=== PATIENT | female | born 1935 | race Caucasian/White ===

== ENCOUNTER 2017-02-02 06:13 | Emergency (ER) | payer BC ==
[~2017-02-02] VITALS: Ht 165.1 cm; Wt 65.0 kg
[2017-02-02 06:16] VITALS: BP 181/79; PULSE 69; RESP 16; TEMP 98; O2SAT 98
[2017-02-02] MEDS ORDERED: SODIUM CHLORIDE 0.9% FLUSH 5 ML FLUSH IVF PRN (06:30)
[2017-02-02 06:35] VITALS: RESP 18; O2SAT 99
--- NOTE | 2017-02-02 06:41 | PD ---
HPI Chief Complaint: Medical Clearance Time Seen by Provider: 06:25 Travel History International Travel<30 days: No Contact w/Intl Traveler<30days: No Traveled to known affect area: No History of Present Illness HPI Is a 81-year-old female presents emergency Department with generalized anxiety and some mild depression associated with her husbands decline in health. Patient is visiting from [facility] where her primary care physician is. Apparently her has been fairly sick with GI bleeding and in and out of the hospital. He is now on estrogen is as a last ditch effort to control the bleeding. She has been losing a few pounds over the past few weeks with her anxiety. Her family wanted her to come to the doctor to be checked out to make sure nothing was significant wrong with her. Patient complains of some generalized fatigue as well but denies any abdominal pain nausea vomiting chest pain shortness of breath rash palpitations or other physical complaint. PFSH Past Medical History Narrative Medical Hyperlipidemia, Atrial fibrillation. Past Surgical History Narrative Surgical Denies Family History Narrative Family History noncontributory Social History Tobacco Use: No Allergies-Medications (Allergen,Severity, Reaction): Coded Allergies: No Known Allergies (Unverified , 02/02/17) Reported Meds & Prescriptions Reported Meds & Active Scripts Active Reported Pradaxa (Dabigatran) 150 Mg Cap 150 Mg PO BID Potassium Chloride ER (Potassium Chloride) 20 Meq Tab 20 Meq PO BID Oxybutynin ER 24 HR (Oxybutynin Chloride) 10 Mg Tab 10 Mg PO DAILY Simvastatin 20 Mg Tab 20 Mg PO DAILY Lexapro (Escitalopram Oxalate) 10 Mg Tab 10 Mg PO DAILY Lisinopril 40 Mg Tab 40 Mg PO DAILY Hydrochlorothiazide 12.5 Mg Cap 12.5 Mg PO DAILY Norvasc (Amlodipine Besylate) 2.5 Mg Tab 2.5 Mg PO DAILY Atenolol 25 Mg Tab 12.5 Mg PO DAILY Review of Systems Except as stated in HPI: all other systems reviewed are Neg Physical Exam Narrative GENERAL: Well-developed well-nourished quite pleasant 81-year-old female who appears generally stated age. She appears in no apparent distress. SKIN: Warm and dry. HEAD: Atraumatic. Normocephalic. EYES: Pupils equal and round. No scleral icterus. No injection or drainage. ENT: No nasal bleeding or discharge. Mucous membranes pink and moist. NECK: Trachea midline. No JVD. CARDIOVASCULAR: Regular rate and rhythm. No murmur appreciated. RESPIRATORY: No accessory muscle use. Clear to auscultation. Breath sounds equal bilaterally. GASTROINTESTINAL: Abdomen soft, non-tender, nondistended. Hepatic and splenic margins not palpable. MUSCULOSKELETAL: No obvious deformities. No clubbing. No cyanosis. No edema. NEUROLOGICAL: Awake and alert. No obvious cranial nerve deficits. Motor grossly within normal limits. Normal speech. PSYCHIATRIC: Appropriate mood and affect; insight and judgment normal. Data Data Last Documented VS Vital Signs Date Time Temp Pulse Resp B/P Pulse Ox O2 Delivery O2 Flow Rate FiO2 02/02/17 06:35 62 18 02/02/17 06:35 99 Nasal Cannula 2 02/02/17 06:16 98.0 181/79 Orders Electrocardiogram (02/02/17 06:30) Basic Metabolic Panel (Bmp) (02/02/17 06:30) Ckmb (Isoenzyme) Profile (02/02/17 06:30) Complete Blood Count With Diff (02/02/17 06:30) Magnesium (Mg) (02/02/17 06:30) Prothrombin Time / Inr (Pt) (02/02/17 06:30) Act Partial Throm Time (Ptt) (02/02/17 06:30) Troponin I (02/02/17 06:30) Lipase (02/02/17 06:30) Chest, Single Ap (02/02/17 06:30) Ecg Monitoring (02/02/17 06:30) Bilateral Bp Monitoring (02/02/17 06:30) Iv Access Insert/Monitor (02/02/17 06:30) Oximetry (02/02/17 06:30) Oxygen Administration (02/02/17 06:30) Sodium Chloride 0.9% Flush (Ns Flush) (02/02/17 06:30) Urinalysis - C+S If Indicated (02/02/17 06:36) CKMB (02/02/17 06:35) CKMB% (02/02/17 06:35) Potassium Cl 40 Meq/30 Ml Liq (Kcl 40 Me (02/02/17 09:15) Labs Laboratory Tests Test 02/02/17 02/02/17 06:35 07:10 White Blood Count 4.2 TH/MM3 Red Blood Count 3.62 MIL/MM3 Hemoglobin 11.6 GM/DL Hematocrit 33.9 % Mean Corpuscular Volume 93.6 FL Mean Corpuscular Hemoglobin 32.0 PG Mean Corpuscular Hemoglobin 34.2 % Concent Red Cell Distribution Width 13.6 % Platelet Count 81 TH/MM3 Mean Platelet Volume 11.6 FL Neutrophils (%) (Auto) 66.8 % Lymphocytes (%) (Auto) 21.8 % Monocytes (%) (Auto) 9.7 % Eosinophils (%) (Auto) 1.3 % Basophils (%) (Auto) 0.4 % Neutrophils # (Auto) 2.8 TH/MM3 Lymphocytes # (Auto) 0.9 TH/MM3 Monocytes # (Auto) 0.4 TH/MM3 Eosinophils # (Auto) 0.1 TH/MM3 Basophils # (Auto) 0.0 TH/MM3 CBC Comment AUTO DIFF Differential Comment AUTO DIFF CONFIRMED Platelet Estimate LOW Platelet Morphology Comment ENLARGED Ovalocytes 1+ Prothrombin Time 11.7 SEC Prothromb Time International 1.1 RATIO Ratio Activated Partial 28.9 SEC Thromboplast Time Sodium Level 143 MEQ/L Potassium Level 3.3 MEQ/L Chloride Level 104 MEQ/L Carbon Dioxide Level 31.3 MEQ/L Anion Gap 8 MEQ/L Blood Urea Nitrogen 13 MG/DL Creatinine 0.92 MG/DL Estimat Glomerular Filtration 59 ML/MIN Rate Random Glucose 96 MG/DL Calcium Level 8.9 MG/DL Magnesium Level 2.1 MG/DL Total Creatine Kinase 116 U/L Creatine Kinase MB 0.6 NG/ML Troponin I LESS THAN 0.02 NG/ML Lipase 181 U/L Urine Color LIGHT-YELLOW Urine Turbidity CLEAR Urine pH 7.5 Urine Specific [place] 1.005 Urine Protein NEG mg/dL Urine Glucose (UA) NEG mg/dL Urine Ketones NEG mg/dL Urine Occult Blood NEG Urine Nitrite NEG Urine Bilirubin NEG Urine Urobilinogen LESS THAN 2.0 MG/DL Urine Leukocyte Esterase NEG Urine RBC LESS THAN 1 /hpf Urine WBC 1 /hpf Microscopic Urinalysis Comment CULT NOT INDICATED MDM Medical Decision Making Medical Screen Exam Complete: Yes Emergency Medical Condition: Yes Interpretation(s) EKG shows atrial fibrillation with normal axis and normal R-wave progression. No concerning ST T changes intervals otherwise within normal limits. This is an abnormal EKG. Differential Diagnosis Generalized weakness, urinary tract infection, anxiety, adjustment disorder, depressed mood, anemia Narrative Course Is a 81-year-old female who appears well and in no apparent distress. Family and friends been concerned over her that she is not taking care of herself in light of her ailing . She is quite pleasant and has no physical exam findings to suggest significant illness. No lymphadenopathy no abdominal pain no chest pain. Given her age and family's concerns I have added basic labs including CMP and CBC UA chest x-ray and troponin. Patient to be discussed with Dr. Murphy at shift change to follow-up labs and disposition properly. Diagnosis Primary Impression: Fatigue Qualified Code: R53.83 - Fatigue, unspecified type Additional Impression: Adjustment disorder Judah Nicole MD Feb 02, 2017 06:41
[2017-02-02] MEDS ORDERED: PRAD150C PO (06:47)
[2017-02-02] MEDS ORDERED: SIMV20TA PO (06:47)
[2017-02-02] MEDS ORDERED: LEXA10TA PO (06:47)
[2017-02-02] MEDS ORDERED: POTA-163 PO (06:47)
[2017-02-02] MEDS ORDERED: HYDR12.57 PO (06:47)
[2017-02-02] MEDS ORDERED: LISI40TA PO (06:47)
[2017-02-02] MEDS ORDERED: OXYB10TA PO (06:47)
[2017-02-02] MEDS ORDERED: NORV2.5T PO (06:47)
[2017-02-02] MEDS ORDERED: ATEN25TA PO (06:47)
--- NOTE | 2017-02-02 06:53 | RADRPT ---
EXAM DATE/TIME: 02/02/2017 06:42 [facility] COMPARISON: No previous studies available for comparison. INDICATIONS : Shortness of breath. MEDICAL HISTORY : None. SURGICAL HISTORY : None. ENCOUNTER: Initial ACUITY: 1 day PAIN SCORE: 0/10 LOCATION: Bilateral chest FINDINGS: A single view of the chest demonstrates the lungs to be symmetrically aerated without confluent infil trate. There is some blunting of the right costophrenic angle possibly representing a small effusion. [place] density laterally in the right upper lung field is quite dense, projects over the third anter ior rib and scapula and appears to be associated with a regional bony structure. Heart size is promin ent but well compensated. Osseous structures are intact. CONCLUSION: Compensated cardiomegaly. Possible small right-sided effusion with some blunting of the costophrenic angle. [place] bony density laterally in the right upper lung field is probably associated with the anterior third rib or the scapula. No acute infiltrate. Gregory Sparrow MD on February 02, 2017 at 6:48 Board Certified Radiologist. This report was verified electronically.
[2017-02-02 06:56] LABS: AUTOMATED NEUTROPHIL # 2.8 TH/MM3 (1.8-7.7); BASOPHIL % 0.4 % (0.0-2.0); EOSINOPHIL # 0.1 TH/MM3 (0-0.4); EOSINOPHIL % 1.3 % (0.0-4.0); HEMATOCRIT 33.9 % (35.0-46.0); LYMPH % 21.8 % (9.0-44.0); LYMPHOCYTE # 0.9 TH/MM3 (1.0-4.8); MEAN CELL VOLUME 93.6 FL (80.0-100.0); MEAN CORPUSCULAR HGB CONC 34.2 % (32.0-36.0); MONO % 9.7 % (0.0-8.0); NEUT % 66.8 % (16.0-70.0); PLATELET COUNT 81 TH/MM3 (150-450); RED BLOOD COUNT 3.62 MIL/MM3 (4.00-5.30); RED CELL DISTRIBUTION WIDTH 13.6 % (11.6-17.2); WHITE BLOOD COUNT 4.2 TH/MM3 (4.0-11.0)
[2017-02-02 07:06] LABS: APTT (PATIENT) 28.9 SEC (24.3-30.1); HEMO FLAGS AUTO DIFF; INTERNATIONAL NORMALIZED RATIO 1.1 RATIO; PROTHROMBIN TIME - PATIENT 11.7 SEC (9.8-11.6)
[2017-02-02 07:16] LABS: ANION GAP 8 MEQ/L (5-15); BICARBONATE 31.3 MEQ/L (21.0-32.0); BLOOD UREA NITROGEN 13 MG/DL (7-18); CHLORIDE 104 MEQ/L (98-107); GLOMERULAR FILTRATION RATE 59 ML/MIN (>89); MAGNESIUM 2.1 MG/DL (1.5-2.5); POTASSIUM 3.3 MEQ/L (3.5-5.1); SODIUM (NA) 143 MEQ/L (136-145)
[2017-02-02 07:20] LABS: CREATINE KINASE 116 U/L (26-192)
[2017-02-02 07:33] LABS: CKMB 0.6 NG/ML (0.5-3.6)
[2017-02-02 07:38] LABS: OVALOCYTES 1+ (NORMAL); PLATELET ESTIMATE SMEAR LOW (NORMAL); PLATELET MORPHOLOGY ENLARGED (NORMAL)
[2017-02-02 07:39] LABS: SCAN/DIFF AUTO DIFF CONFIRMED
--- NOTE | 2017-02-02 07:44 | PD ---
Physical Exam Date Seen by Provider: Feb 02, 2017 Data Data Last Documented VS Vital Signs Date Time Temp Pulse Resp B/P Pulse Ox O2 Delivery O2 Flow Rate FiO2 02/02/17 06:35 62 18 02/02/17 06:35 99 Nasal Cannula 2 02/02/17 06:16 98.0 181/79 Orders Electrocardiogram (02/02/17 06:30) Basic Metabolic Panel (Bmp) (02/02/17 06:30) Ckmb (Isoenzyme) Profile (02/02/17 06:30) Complete Blood Count With Diff (02/02/17 06:30) Magnesium (Mg) (02/02/17 06:30) Prothrombin Time / Inr (Pt) (02/02/17 06:30) Act Partial Throm Time (Ptt) (02/02/17 06:30) Troponin I (02/02/17 06:30) Lipase (02/02/17 06:30) Chest, Single Ap (02/02/17 06:30) Ecg Monitoring (02/02/17 06:30) Bilateral Bp Monitoring (02/02/17 06:30) Iv Access Insert/Monitor (02/02/17 06:30) Oximetry (02/02/17 06:30) Oxygen Administration (02/02/17 06:30) Sodium Chloride 0.9% Flush (Ns Flush) (02/02/17 06:30) Urinalysis - C+S If Indicated (02/02/17 06:36) CKMB (02/02/17 06:35) CKMB% (02/02/17 06:35) Potassium Cl 40 Meq/30 Ml Liq (Kcl 40 Me (02/02/17 09:15) Labs Laboratory Tests Test 02/02/17 02/02/17 06:35 07:10 White Blood Count 4.2 TH/MM3 Red Blood Count 3.62 MIL/MM3 Hemoglobin 11.6 GM/DL Hematocrit 33.9 % Mean Corpuscular Volume 93.6 FL Mean Corpuscular Hemoglobin 32.0 PG Mean Corpuscular Hemoglobin 34.2 % Concent Red Cell Distribution Width 13.6 % Platelet Count 81 TH/MM3 Mean Platelet Volume 11.6 FL Neutrophils (%) (Auto) 66.8 % Lymphocytes (%) (Auto) 21.8 % Monocytes (%) (Auto) 9.7 % Eosinophils (%) (Auto) 1.3 % Basophils (%) (Auto) 0.4 % Neutrophils # (Auto) 2.8 TH/MM3 Lymphocytes # (Auto) 0.9 TH/MM3 Monocytes # (Auto) 0.4 TH/MM3 Eosinophils # (Auto) 0.1 TH/MM3 Basophils # (Auto) 0.0 TH/MM3 CBC Comment AUTO DIFF Differential Comment AUTO DIFF CONFIRMED Platelet Estimate LOW Platelet Morphology Comment ENLARGED Ovalocytes 1+ Prothrombin Time 11.7 SEC Prothromb Time International 1.1 RATIO Ratio Activated Partial 28.9 SEC Thromboplast Time Sodium Level 143 MEQ/L Potassium Level 3.3 MEQ/L Chloride Level 104 MEQ/L Carbon Dioxide Level 31.3 MEQ/L Anion Gap 8 MEQ/L Blood Urea Nitrogen 13 MG/DL Creatinine 0.92 MG/DL Estimat Glomerular Filtration 59 ML/MIN Rate Random Glucose 96 MG/DL Calcium Level 8.9 MG/DL Magnesium Level 2.1 MG/DL Total Creatine Kinase 116 U/L Creatine Kinase MB 0.6 NG/ML Troponin I LESS THAN 0.02 NG/ML Lipase 181 U/L Urine Color LIGHT-YELLOW Urine Turbidity CLEAR Urine pH 7.5 Urine Specific [place] 1.005 Urine Protein NEG mg/dL Urine Glucose (UA) NEG mg/dL Urine Ketones NEG mg/dL Urine Occult Blood NEG Urine Nitrite NEG Urine Bilirubin NEG Urine Urobilinogen LESS THAN 2.0 MG/DL Urine Leukocyte Esterase NEG Urine RBC LESS THAN 1 /hpf Urine WBC 1 /hpf Microscopic Urinalysis Comment CULT NOT INDICATED MDM Medical Record Reviewed: Yes Supervised Visit with BRIELLE: No Interpretation(s) EKG at 0633: A. fib at 67 bpm, QT/QTc 428/443, no acute ST or T-wave changes Vital Signs Date Time Temp Pulse Resp B/P Pulse Ox O2 Delivery O2 Flow Rate FiO2 02/02/17 06:35 62 18 02/02/17 06:35 99 Nasal Cannula 2 02/02/17 06:35 18 99 Nasal Cannula 2 02/02/17 06:16 98.0 69 16 181/79 98 Laboratory Tests Test 02/02/17 06:35 White Blood Count 4.2 TH/MM3 (4.0-11.0) Red Blood Count 3.62 MIL/MM3 (4.00-5.30) Hemoglobin 11.6 GM/DL (11.6-15.3) Hematocrit 33.9 % (35.0-46.0) Mean Corpuscular Volume 93.6 FL (80.0-100.0) Mean Corpuscular Hemoglobin 32.0 PG (27.0-34.0) Mean Corpuscular Hemoglobin 34.2 % Concent (32.0-36.0) Red Cell Distribution Width 13.6 % (11.6-17.2) Platelet Count 81 TH/MM3 (150-450) Mean Platelet Volume 11.6 FL (7.0-11.0) Neutrophils (%) (Auto) 66.8 % (16.0-70.0) Lymphocytes (%) (Auto) 21.8 % (9.0-44.0) Monocytes (%) (Auto) 9.7 % (0.0-8.0) Eosinophils (%) (Auto) 1.3 % (0.0-4.0) Basophils (%) (Auto) 0.4 % (0.0-2.0) Neutrophils # (Auto) 2.8 TH/MM3 (1.8-7.7) Lymphocytes # (Auto) 0.9 TH/MM3 (1.0-4.8) Monocytes # (Auto) 0.4 TH/MM3 (0-0.9) Eosinophils # (Auto) 0.1 TH/MM3 (0-0.4) Basophils # (Auto) 0.0 TH/MM3 (0-0.2) CBC Comment AUTO DIFF Differential Comment AUTO DIFF CONFIRMED Platelet Estimate LOW (NORMAL) Platelet Morphology Comment ENLARGED (NORMAL) Ovalocytes 1+ (NORMAL) Prothrombin Time 11.7 SEC (9.8-11.6) Prothromb Time International 1.1 RATIO Ratio Activated Partial 28.9 SEC Thromboplast Time (24.3-30.1) Sodium Level 143 MEQ/L (136-145) Potassium Level 3.3 MEQ/L (3.5-5.1) Chloride Level 104 MEQ/L (98-107) Carbon Dioxide Level 31.3 MEQ/L (21.0-32.0) Anion Gap 8 MEQ/L (5-15) Blood Urea Nitrogen 13 MG/DL (7-18) Creatinine 0.92 MG/DL (0.50-1.00) Estimat Glomerular Filtration 59 ML/MIN (>89) Rate Random Glucose 96 MG/DL (74-106) Calcium Level 8.9 MG/DL (8.5-10.1) Magnesium Level 2.1 MG/DL (1.5-2.5) Total Creatine Kinase 116 U/L (26-192) Creatine Kinase MB 0.6 NG/ML (0.5-3.6) Troponin I LESS THAN 0.02 NG/ML (0.02-0.05) Lipase 181 U/L (73-393) Last Impressions Chest X-Ray 02/02/17629 Signed Impressions: Service Date/Time: Thursday, February 02, 2017 06:42 - CONCLUSION: Compensated cardiomegaly. Possible small right-sided effusion with some blunting of the costophrenic angle. [place] bony density laterally in the right upper lung field is probably associated with the anterior third rib or the scapula. No acute infiltrate. Gregory Saprrow MD Differential Diagnosis UTI, depression, ACS, electrolyte abnormality, anxiety reaction, arrhythmia, adjustment disorder, depression Narrative Course Please see previous providers chart Patient was signed out to me at change of shift, patient pending labs and dispo Patient is a 81-year-old female with history of afib, who presents to emergency room for evaluation of generalized anxiety secondary to medical problems with her . Patient with no overt complaints at this time, patient requesting a general workup as she reports generalized fatigue. Patient with no headache or dizziness, no chest pain or shortness of breath at this time. She reports abdominal pain, nausea or vomiting or fevers or chills. Labs as well as UA and x-ray chest ordered for general evaluation of patient. Patient with no complaints at this time. Labs as well as UA and x-ray of chest reviewed. Copy of xray report was given to patient at discharge Last Impressions Chest X-Ray 02/02/17629 Signed Impressions: Service Date/Time: Thursday, February 02, 2017 06:42 - CONCLUSION: Compensated cardiomegaly. Possible small right-sided effusion with some blunting of the costophrenic angle. [place] bony density laterally in the right upper lung field is probably associated with the anterior third rib or the scapula. No acute infiltrate. Gregory Sparrow MD CBC & BMP Diagram 02/02/17 06:35 Patient with no complaints at this time, I reviewed all labs and all studies with patient in detail. Patient reports that she is "fine" and is only here for general evaluation as her family was worried about her. Patient will follow up with pcp and return to ER as needed. Diagnosis Primary Impression: Fatigue Qualified Code: R53.83 - Fatigue, unspecified type Additional Impressions: Adjustment disorder Hypokalemia Thrombocytopenia Patient Instructions: General Instructions Additional Instruction: Please provide patient with a copy of her lab work at discharge Please follow-up in a primary care doctor Return to the emergency room as needed Disposition: 01 DISCHARGE HOME Condition: Stable Roxie Murphy DO Feb 02, 2017 07:44
[2017-02-02 07:45] LABS: BLOOD, URINE NEG (NEG); GLUCOSE,URINE NEG (NEG); KETONE, URINE NEG (NEG); NITRITE,URINE NEG (NEG); PH, URINE 7.5 (5.0-8.5); URINE COLOR LIGHT-YELLOW (YELLW/STRAW)
[2017-02-02 07:51] LABS: COMMENT (UR) CULT NOT INDICATED; CULTURE IF INDICATED CULT NOT INDICATED
[2017-02-02] MEDS ORDERED: POTASSIUM CL 40 MEQ/30 ML LIQ UDC PO ONE (09:15)
--- NOTE | 2017-02-02 10:07 | EKG ---
Date Performed: 02/02/2017 Time Performed: 06:33:34 PTAGE: 81 years EKG: ATRIAL FIBRILLATION ABNORMAL RHYTHM ECG NO PREVIOUS TRACING DOCTOR: Byron Ellis Interpretating Date/Time 02/02/2017 10:03:46
== END 2017-02-02 10:06 | disposition home or self-care (01) ==
LOC: NEPC 06:13
DX: R53.83 Other fatigue (principal); F43.20 Adjustment disorder, unspecified; E87.6 Hypokalemia; D69.6 Thrombocytopenia, unspecified; E78.5 Hyperlipidemia, unspecified; I48.91 Unspecified atrial fibrillation; R94.31 Abnormal electrocardiogram [ECG] [EKG]
CPT/HCPCS: 71010; 80048; 81001; 82550; 82552; 83690; 83735; 84484; 85025; 85610; 85730; 93005